=== PATIENT | female | born 1975 | race Caucasian/White ===

== ENCOUNTER → 2016-04-21 | Outpatient (CLI) | payer OTHER ==
--- NOTE | 2016-04-21 18:00 | MA ---
CORRECTED ORDER Screening Digital Mammogram With iCAD Analysis Clinical Indications: Routine screening. Her mother was diagnosed with breast cancer in her 50s. Technique: Standard cephalocaudal projections are obtained. Digital breast tomosynthesis was performed in the MLO projection with reconstruction at 1.0 mm slice thickness and composite MLO views reconstructed. This examination is processed by the iCAD computer aided detection system. Comparison: April 2015, November 2012, June 2009, April 2008, September 2006. Breast density: Type C: Heterogeneously dense. Findings: CAD was reviewed. No masses, suspicious calcifications or secondary signs of malignancy are seen. There has been no significant change in the appearance of either breast. Impression: Negative mammogram. BI-RADS 1. Recommendation: Routine mammographic screening in one year as long as physical examination is negative in this patient with heterogeneously dense breast parenchyma. [facility] will send a result letter to the patient. Negative mammography should not preclude additional workup of a clinically suspicious finding. The patient's information is entered into a reminder system with a target due date for her next mammogram. [facility] MEDICAL CENTERMelissa
== END ==
LOC: FIMAGING 15:53
DX: Z12.31 Encounter for screening mammogram for malignant neoplasm of breast (principal); Z85.3 Personal history of malignant neoplasm of breast
CPT/HCPCS: G0202

== ENCOUNTER → 2017-05-01 | Outpatient (CLI) | payer OTHER | LOC: FIMAGING 09:38 | PROVIDERS: ATTEND Family Medicine | DX: Z12.31 Encounter for screening mammogram for malignant neoplasm of breast (principal); Z85.43 Personal history of malignant neoplasm of ovary; Z80.3 Family history of malignant neoplasm of breast ==